=== PATIENT | male | born 1980 | race Hispanic/Latino ===

== ENCOUNTER 2018-07-03 17:51 | Observation (INO) | payer OTHER ==
[~2018-07-03] VITALS: Ht 182.9 cm; Wt 91.4 kg
[~2018-07-03 17:51] MED LIST: FISH OIL500 M1 PO; NIACIN500 M2 PO
[2018-07-03 18:43] LABS: BASOPHILS % 0.4 % (0.0-1.0); EOSINOPHILS # (AUTO) 0.1 (0.0-0.4); HEMATOCRIT 42.1 % (38.2-49.6); HEMOGLOBIN 14.1 g/dL (14.0-18.0); LYMPHOCYTES # (AUTO) 2.6 (1.0-3.2); MEAN CORPUSCULAR HGB CONC 33.5 g/dL (31-35); MEAN CORPUSCULAR VOLUME 89.6 fL (81-99); MONOCYTES # (AUTO) 0.5 (0.2-0.8); MONOCYTES % 9.7 % (4.4-11.3); NEUTROPHILS % 38.7 % (38.7-80.0); PLATELET COUNT 184 x10e3/uL (140-360); RED CELL DISTRIBUTION WIDTH 13.3 % (11.7-14.4)
[2018-07-03 18:48] LABS: CLARITY,URINE CLEAR (CLEAR); COLOR,URINE YELLOW (YELLOW); KETONES,URINE NEGATIVE (NEGATIVE); LEUKOCYTE ESTERASE ,URINE NEGATIVE (NEGATIVE); NITRITE,URINE NEGATIVE (NEGATIVE); PROTEIN,URINE DIPSTICK NEGATIVE (NEGATIVE)
[2018-07-03 18:49] LABS: BILIRUBIN,URINE NEGATIVE (NEGATIVE); URINE UROBILINOGEN 0.2 mg/dL (0.2 - 1)
[2018-07-03 18:51] LABS: AMPHETAMINES SCREEN,URINE NEGATIVE (NEGATIVE); BENZODIAZEPINES SCREEN,URINE NEGATIVE (NEGATIVE); PHENCYCLIDINE SCREEN,URINE NEGATIVE (NEGATIVE)
[2018-07-03 18:58] LABS: INR 0.93; PROTHROMBIN TIME 13.3 seconds (11.9-14.5)
[2018-07-03 18:59] LABS: PARTIAL THROMBOPLASTIN TIME 30.7 seconds (23.8-35.5)
[2018-07-03 19:01] LABS: ALANINE AMINOTRANSFERASE 38 IU/L (0-55); ALBUMIN 4.6 g/dL (3.5-5.0); ALBUMIN/GLOBULIN RATIO 1.5 (0.8-2.0); ALKALINE PHOSPHATASE 75 IU/L (40-150); ANION GAP 14.7 mmol/L (8-16); BLOOD UREA NITROGEN 16 mg/dL (7-26); BUN/CREATININE RATIO 18 (6-25); CALCIUM 9.5 mg/dL (8.4-10.2); CARBON DIOXIDE 24 mmol/L (22-29); CHLORIDE 105 mmol/L (98-107); CREATINE KINASE 150 IU/L (30-200); CREATININE, SERUM 0.88 mg/dL (0.72-1.25); EST GLOMERULAR FILTRATION RATE > 60 ML/MIN (60-); GLUCOSE 107 mg/dL (74-118); POTASSIUM 3.7 mmol/L (3.5-5.1); SODIUM 140 mmol/L (136-145)
--- NOTE | 2018-07-03 20:36 | Diagnostic Imaging Report ---
Exam: Head CT without contrast History: Dizziness Comparison studies: None Technique: Axial images were obtained from the skull base to the vertex. Coronal and sagittal images reconstructed from the axial data. Dose modulation, iterative reconstruction, and/or weight based adjustment of the mA/kV was utilized to reduce the radiation dose to as low as reasonably achievable. Radiation dose: Total DLP: 921 mGy*cm. Estimated effective dose: DLP x 0.015 Intravenous contrast: None Findings: Scalp: No abnormalities. Bones: No fractures, blastic or lytic lesions. Brain sulci: Appropriate for age. Ventricles: Normal in size and configuration. No hydrocephalus. Extra-axial spaces: No masses, no fluid collection. Parenchyma: No abnormal densities. No masses, acute hemorrhage, acute or chronic vascular insults. Sellar/suprasellar region: No abnormalities. Craniocervical junction: Patent foramen magnum. No Chiari one malformation. IMPRESSION: 1. No acute intracranial abnormalities. 2. No changes from the previous head CT of 05/03/2016. Signed by: Dr. Mamadou Hall M.D. on 07/03/2018 8:33 PM
[2018-07-03] MEDS ORDERED: ONDANSETRON HCL INJ 2 MG/ML VIAL IV PRN (21:45)
--- OUTSIDE RECORDS SUMMARY | 2018-07-03 22:08 | XMS REPORT ---
Author [facility] Address Unknown Phone Unavailable Care Team Providers Care Scholarship Counselor Name Role Phone Anayeli HANLEY Unavailable Unavailable Problems This patient has no known problems. Allergies, Adverse Reactions, Alerts This patient has no known allergies or adverse reactions. Medications This patient has no known medications. Results Test Description Test Time Test Comments Text Results Atomic Results Result Comments CT BRAIN WO 2018-07-03 20:28:00 [facility] [address] [address] Patient Name: BRI GALLAGHER MR #: [id number] : 1980 Age/Sex: 38/M Req #: [id number] Adm Physician: Ordered by: BLANCA HANLEY MD Report #: [id number] Location: ER Room/Bed: Procedure: [id number] CT/CT BRAIN WO Exam Date: Exam Time: REPORT STATUS: Signed Exam: Head CT without contrast History: Dizziness Comparison studies: None Technique: Axial images were obtained from the skull base to the vertex. Coronal and sagittal images reconstructed from the axial data. Dose modulation, iterative reconstruction, and/or weight based adjustment of the mA/kV was utilized to reduce the radiation dose to as low as reasonably achievable. Radiation dose: Total DLP: 921 mGy*cm. Estimated effective dose: DLP x 0.015 Intravenous contrast: None Findings: Scalp: No abnormalities. Bones: No fractures, blastic or lytic lesions. Brain sulci: Appropriate for age. Ventricles: Normal in size and configuration. No hydrocephalus. Extra-axial spaces: No masses, no fluid collection. Parenchyma: No abnormal densities. No masses, acute hemorrhage, acute or chronic vascular insults. Sellar/suprasellar region: No abnormalities. Craniocervical junction: Patent foramen magnum. No Chiari one malformation. IMPRESSION: 1. No acute intracranial abnormalities. 2. No changes from the previous head CT of 05/03/2016. Signed by: Dr. Keven Paulson M.D. on 07/03/2018 8:33 PM Dictated By: KEVEN PAULSON MD 32 Transcribed By: SALLIE on 07/03/182032 COPY TO: BLANCA HANLEY MD
[2018-07-03] MEDS: SODIUM CHLORIDE 0.9% 1000ML 1,000 ML IV SCH (22:42)
[2018-07-03 23:56] VITALS: BP 128/71
[2018-07-04] VITALS (7 sets, daily range): BP systolic 96–138; BP diastolic 54–81
[2018-07-04 02:47] LABS: CREATINE KINASE MB 1.3 ng/mL (0-5.0)
[2018-07-04 05:34] LABS: BASOPHILS % 0.6 % (0.0-1.0); EOSINOPHILS # (AUTO) 0.1 (0.0-0.4); EOSINOPHILS % 1.4 % (0.0-6.0); HEMATOCRIT 40.3 % (38.2-49.6); HEMOGLOBIN 13.8 g/dL (14.0-18.0); LYMPHOCYTES # (AUTO) 2.6 (1.0-3.2); LYMPHOCYTES % 51.2 % (18.0-39.1); MEAN CORPUSCULAR HEMOGLOBIN 30.5 pg (28-32); MEAN CORPUSCULAR HGB CONC 34.2 g/dL (31-35); MONOCYTES # (AUTO) 0.5 (0.2-0.8); MONOCYTES % 9.2 % (4.4-11.3); NEUTROPHILS # (AUTO) 1.9 (2.1-6.9); NEUTROPHILS % 37.4 % (38.7-80.0); PLATELET COUNT 163 x10e3/uL (140-360); RED BLOOD COUNT 4.53 x10e6/uL (4.3-5.7); RED CELL DISTRIBUTION WIDTH 13.5 % (11.7-14.4)
[2018-07-04 05:57] LABS: ANION GAP 12.7 mmol/L (8-16); BLOOD UREA NITROGEN 13 mg/dL (7-26); BUN/CREATININE RATIO 16 (6-25); CALCIUM 8.8 mg/dL (8.4-10.2); CARBON DIOXIDE 22 mmol/L (22-29); CHLORIDE 110 mmol/L (98-107); CHOL/HDL RATIO 5.2 (3.9-4.7); CHOLESTEROL 183 MD/DL (0-199); CREATININE, SERUM 0.83 mg/dL (0.72-1.25); EST GLOMERULAR FILTRATION RATE > 60 ML/MIN (60-); GLUCOSE 99 mg/dL (74-118); HDL CHOLESTEROL 35 MG/DL (40-60); LDL CHOLESTEROL 126 MG/DL (60-130); POTASSIUM 3.7 mmol/L (3.5-5.1); SODIUM 141 mmol/L (136-145); TRIGLYCERIDES 109 MG/DL (0-149)
[2018-07-04] MEDS: SODIUM CHLORIDE 0.9% 1000ML 1,000 ML IV SCH (07:03)
[2018-07-04] MEDS ORDERED: ASPIRIN 81 MG ENTERIC COATED PO SCH ×2 (09:00→10:30)
[2018-07-04] MEDS ORDERED: AMOXICILLIN 250 MG CAP PO SCH ×2 (11:45→15:00)
[2018-07-04] MEDS ORDERED: LORATADINE/PSEUDOEPHEDRINE 24 HR SR TAB PO SCH (12:30)
--- NOTE | 2018-07-04 13:06 | History and Physical ---
CHIEF COMPLAINT: "I could not speak." HISTORY OF PRESENT ILLNESS: This is a 38-year-old man who presented to [facility] with 2 episodes of altered mentation. Patient states the first episode occurred at work, and for approximately 45 to 60 seconds, he could not speak. The patient stated that he could think of the words but could not actually articulate them. Patient's second episode occurred an hour later when he was driving the car with his . Patient stated that at that time he had intense head pressure that made it difficult for him to speak. Both episodes lasted approximately 45 to 60 seconds. Patient also states that for the past few months he has had vertigo like symptoms. In fact, he has ran into the wall twice because of possible ataxia. These complaints are corroborated by his . In the emergency room, patient had a CT of the brain without contrast, which did not reveal any acute intracranial abnormality. Patient also had blood work done that was unremarkable. Moreover, urine toxicology was completely negative. Patient was admitted for further evaluation and treatment. REVIEW OF SYSTEMS GENERAL: Weight has been stable. No fever or chills. HEENT: Patient states that on day of admission, he had intense head pressure. He also complains of intermittent vertigo symptoms over the last couple of months. Denies any visual changes. CARDIOVASCULAR: No chest pain or shortness of breath. No palpitations or lightheadedness. GI: No nausea, vomiting, constipation. : No UTI symptoms. NEUROMUSCULAR: The patient states for the past 6 months, he has had a few episodes of poor balance, possible ataxia. PAST MEDICAL HISTORY: None. SURGICAL HISTORY: None. FAMILY HISTORY: Two uncles with strokes. ALLERGIES: NO KNOWN DRUG ALLERGIES. MEDICATIONS: None. SOCIAL HISTORY: He is . Lives with his . 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 Quit smoking tobacco and drinking alcohol several years ago. PHYSICAL EXAMINATION GENERAL: He is awake, alert, and fully oriented. He is slightly anxious but he is very pleasant, cooperative on exam. Excessive repetitive eye blinking observed in this patient. VITAL SIGNS: Blood pressure is 122/68, pulse 55, respiratory rate 18, temperature 95.8, ox saturation 98% on room air, height is 6 feet 0 inches, weight is 200 pounds, BMI 27. INTEGUMENT: Skin is warm and dry. No pallor, jaundice, or diaphoresis. HEENT: Anicteric sclerae. Moist mucous membranes. Patient has poor light reflex in the bilateral tympanic membranes consistent with middle ear effusion. The right tympanic membrane is erythematous. No frontal or maxillary sinus tenderness appreciated with palpation. NECK: Supple. No evidence of lymphadenopathy. CARDIOVASCULAR: Regular rate and rhythm. LUNGS: No rales. No rhonchi or wheezing. EXTREMITIES: No edema or deformity. NEUROLOGIC: No focal deficits appreciated. Negative Romberg. No evidence of dysdiadochokinesia. Brttmx-fp-[id number] was intact. DIAGNOSES 1. Expressive aphasia (transient). 2. Bilateral middle ear effusions. 3. Right otitis media. 4. Vertigo, likely secondary to bilateral middle ear effusions. 5. Tourette's, likely. PLAN 1. Consult neurology. 2. We will initiate antihistamines with pseudoephedrine for patient's middle ear effusion and vertigo symptoms. 3. Prescribe amoxicillin 875 mg p.o. b.i.d. for 7 days for patient's right-sided otitis media. 4. We will proceed with MRI of the brain. 5. Discontinue intravenous fluids. 6. Discontinue telemetry. 7. Reassurance. 8. I informed the patient that if MRI of the brain is unremarkable, then he will be discharged home. I spent an hour in the care of this patient. Job#: [id number] ALIS YEAGER
--- NOTE | 2018-07-04 14:45 | Diagnostic Imaging Report ---
History: Slurred speech for 5 minutes yesterday Comparison studies: CT head 07/03/2018 and 08/24/2015 Technique: Sagittal T2; axial DWI, FLAIR, MPGR, T1, Coronal FLAIR. Intravenous contrast: None Findings: Scalp: Normal in signal . No masses . Bone marrow: Normal in signal intensity. Extra-axial: No masses, no fluid collections. Brain sulci: Appropriate for age. Ventricles: Normal in size . No hydrocephalus . Parenchyma: No abnormal signal intensities. No masses, hemorrhage, acute or chronic vascular insults. Suprasellar region: No abnormalities. Craniocervical junction: No abnormalities. Patent foramen magnum. No Chiari one malformation. Vessels: Normal flow-voids in the arteries and sinuses. IMPRESSION: 1. No abnormalities Signed by: DR Manny Taylor M.D. on 07/04/2018 2:41 PM
[2018-07-04 15:17] LABS: CREATINE KINASE 113 IU/L (30-200)
[2018-07-04] MEDS ORDERED: AMOXICILLIN875 MG PO (17:29)
[2018-07-04] MEDS ORDERED: ALLEGRA-D 12 H1 EACH PO (17:30)
--- NOTE | 2018-07-04 19:13 | Consultation ---
DATE OF CONSULTATION: July 04, 2018 NEUROLOGY CONSULT NOTE HISTORY OF PRESENT ILLNESS: Mr. Russo is a 38-year-old right hand dominant man with past medical history significant for hyperlipidemia, admitted to [facility] on July 03, 2018 with multiple symptoms. Beginning in December 2017, the patient began to experience intermittent dizziness, which he describes as a vertiginous sensation. The vertiginous sensation causes the patient to have an intermittently unsteady gait, which has resulted in multiple stumbles and falls. Mr. Russo reports breaking toes in both feet as a result of these stumbles and falls. The patient saw his primary care physician regarding the above symptoms and was diagnosed with vertigo. He was prescribed an oral medication for treatment, but did not take this medication. Approximately 1 week ago, the patient began to experience pressure in his head which is described as follows: The pressure is located over the occiput and does not radiate. The patient does not report throbbing, pulsing, or sharp pain associated with the pressure. The pressure is [id number] in severity. Mr. Russo does report dizziness, further described as a vertiginous sensation, and impairment of concentration associated with the headache. He does not report visual disturbance, photophobia, phonophobia, or nausea and vomiting associated with the headache. Thinking the above symptoms were due to the previously untreated vertigo, Mr. Russo began taking the prescribed oral medication. On the day admission, the patient experienced 2 transient episodes of expressive aphasia. Mr. Russo reports speaking to different coworkers during both situations. For a period of approximately 30 to 45 seconds, the patient knew what he wanted to say, but was unable to get the words out. Along with the expressive aphasia, the patient reports a need to be "super focused" on whenever he was trying to do at the moment (i.e., drive his truck, answer questions from coworkers, etc.) The speech difficulty was especially disturbing to Mr. Russo, so he proceeded to [facility] where he was admitted for further evaluation and treatment. Mr. Russo does not report a personal history nor a family history of primary headache disorders. He does not endorse febrile seizures. He does have a nephew with a seizure disorder. The patient reports multiple instances of head trauma with one instance of loss of consciousness. He does not report prior meningitis or encephalitis. REVIEW OF SYSTEMS: Impairment of concentration, aphasia, headache which is described as pressure over the occiput, and dizziness which is described as a vertiginous sensation. Otherwise, a 12-point review of systems is negative. PAST MEDICAL HISTORY: Hyperlipidemia. PAST SURGICAL HISTORY: None. PAST HOSPITALIZATIONS: None. FAMILY MEDICAL HISTORY: The patient's paternal and maternal grandparents are . Their medical records are unknown. The patient's father is from an aortic dissection. He had coronary artery disease as well. The patient's mother is alive. She has hyperlipidemia, diabetes mellitus, and schizophrenia. Mr. Russo has 4 siblings, 1 brother and 3 sisters, all of whom are alive. His younger sister has bipolar disorder. His middle sister is healthy. His elder sister and brother have possible psychiatric disorders. The patient has 3 daughters, all of whom are alive and healthy. SOCIAL HISTORY: The patient is . 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 The patient does report a prior history of tobacco use, but quit smoking cigarettes 15 years ago. The patient does report a prior history of alcohol use, but quit drinking alcohol approximately 3 years ago. Mr. Russo reports using marijuana and acid in his youth. Last use was 20 years ago. HOME MEDICATIONS: None. ALLERGIES: STATINS CAUSE BLURRED VISION. NO KNOWN FOOD ALLERGIES. NO KNOWN ALLERGIES TO LATEX. NO KNOWN ALLERGIES TO IODINE OR OTHER CONTRAST MATERIALS. PHYSICAL EXAMINATION VITAL SIGNS: Height 72 inches, weight 201 pounds, BMI 27.3 kg/m2. Blood pressure 102/59 mmHg, pulse 52 beats per minute, respiratory rate 18 breaths per minute, oxygen saturation 97% on room air. GENERAL: The patient is awake and alert, does not appear distressed. Mildly overweight. HEENT: Normocephalic, atraumatic. Pupils are equal, round, and reactive to light. Moist mucous membranes. NECK: Supple. No appreciable thyromegaly. No appreciable carotid bruits. CARDIOVASCULAR: S1, S2, regular rate and rhythm. No murmurs, rubs, or gallops. RESPIRATORY: Clear to auscultation bilaterally. No wheezes, rhonchi, or rales. EXTREMITIES: The skin is warm and dry. No clubbing, cyanosis, or edema. The posterior tibial and dorsalis pedis pulses are 2+ and symmetric. SKIN: No rashes or lesions. NEUROLOGIC: Memory/Attention: The patient is awake and alert, oriented to person, place, time, and situation. Cranial Nerves: Cranial nerve I - not tested. Cranial nerve II, III, IV, and - pupils are equal and round, react briskly to light (from 4 mm to 2 mm). Extraocular movements intact. No nystagmus. Cranial nerve V - sensation to light touch and pinprick is intact in the bilateral V1 through V3 distributions. Strength of the temporalis and masseter muscles is within normal limits. Cranial nerve VII - the face is symmetric as are all facial movements. Strength is within normal limits. Cranial nerve VII - hearing is intact to finger rub bilaterally. Cranial nerve IX, X - the soft palate elevates equally and symmetrically. Cranial nerve XI - normal strength of the bilateral sternocleidomastoid and trapezius muscles. Cranial nerve XII - the tongue protrudes midline and moves symmetrically from side to side. Strength: Bulk is normal. Strength is 5/5 in the bilateral deltoids, biceps, triceps, wrist flexors and extensors, finger flexors and extensors, intrinsic hand muscles, hip flexors, knee flexors and extensors, ankle dorsiflexion and plantarflexion, and intrinsic foot muscles. Tone is normal. DTRs: Deep tendon reflexes are 2+ and symmetric at the triceps, biceps, brachioradialis, patellas, and Achilles. Plantar responses are flexor bilaterally. Sensation: Sensation is intact to light touch and pinprick in both arms and both legs. Cerebellar: Wivqcz-pnbf-scmjla and heel-finley movements are intact without dysmetria or other impairment. Gait: Spontaneous gait is normal. Speech: Spontaneous speech is normal without appreciable dysarthria or aphasia. Repetition is intact. Involuntary Movements: None. Pronator Drift: None. LABORATORY DATA: A comprehensive metabolic panel is unremarkable. Cardiac enzymes are negative x3. Total cholesterol 183, triglycerides 109, LDL cholesterol 126, HDL cholesterol 35. The CBC with differential and platelets reveals a white blood cell count of 5.12 with 37.4% neutrophils, 51.2% lymphocytes, 9.2% monocytes, 1.4% eosinophils, and 0.6% basophils. The hemoglobin and hematocrit are 13.4 and 40.3, respectively. The platelet count is 163. The coagulation profile is within normal limits. A urinalysis is unremarkable. A urine drug screen is negative. DIAGNOSTIC STUDIES: CT of the brain without contrast, July 03, 2018: On my review, there is no evidence of recent large territorial ischemia, hemorrhage, mass, or mass effect. Cerebral volumes are appropriate for age. There are no findings compatible with chronic small vessel ischemic disease. ASSESSMENT AND PLAN: Mr. Russo is a 38-year-old right hand dominant man with past medical history significant for hyperlipidemia, admitted with multiple symptoms, chief among them being 2 brief episodes of expressive aphasia. The patient's neurological examination is nonfocal. His laboratory data and other diagnostic studies have been reviewed and are documented above. There is low suspicion for a transient ischemic attack or stroke based on the patient's relative lack of vascular risk factors as well as the brief duration of both episodes of expressive aphasia. The presence of headache, vertigo, and impairment of concentration raises suspicions for migraine phenomenon, which may have neurological symptoms associated with it. Another possible diagnosis is an underlying seizure disorder, particularly frontal lobe seizures. RECOMMENDATIONS: Are as follows; 1. A MRI of the brain without contrast has been ordered and is pending. 2. A routine EEG will be ordered stat so it may be done over the weekend. 3. Defer treatment of the remaining medical comorbidities to the primary and other services following the patient. Thank you for this consultation. I will continue to follow the patient while he remains in the hospital. TIME SPENT: 70 minutes. Job#: [id number] ARTHUR
--- NOTE | 2018-07-04 20:04 | Electroencephalogram ---
DATE OF STUDY: July 04, 2018 REQUESTING PHYSICIAN: Dr. Leora Perez. PATIENT HISTORY: This 38-year-old man with a history of transient expressive aphasia, is having an EEG for evaluation of epileptiform activity. The patient is not taking any medications that might affect the EEG. TECHNIQUE: This is a routine, portable EEG, recorded digitally, using the International 10/20 Electrode Placement System and done in the inpatient setting with the patient awake. The EEG is adequate for interpretation. DESCRIPTION: Well-organized, well-sustained, 10-12 Hz activity is best seen symmetrically over the posterior head regions. No focal or epileptiform activity is recorded. Sleep is not recorded. Photic stimulation does not produce a driving response. Hyperventilation does not produce slowing. INTERPRETATION: This electroencephalogram is normal with the patient awake. No epileptiform discharges are seen. Job#: [id number] VAS MTDD
--- NOTE | 2018-09-06 13:13 | Discharge Summary ---
ADMITTING DIAGNOSES 1. Expressive aphasia (transient). 2. Bilateral middle ear effusions. 3. Right otitis media. 4. Vertigo, likely secondary to middle ear effusions. 5. Tourette's, likely. DISCHARGE DIAGNOSES 1. Expressive aphasia (transient), resolved. 2. Bilateral middle ear effusions. 3. Right otitis media. 4. Vertigo, secondary to bilateral middle ear effusions. 5. Tourette's, likely. HOSPITAL COURSE: This is a 38-year-old man who initially was admitted to [facility] with diagnosis of transient aphasia as well as dizziness. During this hospitalization, he was diagnosed with bilateral middle ear effusion, right otitis media and likely vertigo. Patient improved clinically with medications during this hospital stay. Patient was also seen by a neurologist during this hospital stay, name, Dr. Leora Perez. The patient underwent electroencephalogram during this hospital stay that was completely normal. No epileptiform discharges were appreciated. Patient also underwent an MRI of the brain during this hospitalization, which showed actually no abnormalities. Moreover, patient underwent carotid Doppler that did not reveal any hemodynamically significant stenosis in the carotid system. The patient's hospitalization was unremarkable. CONDITION ON DISCHARGE: Stable. DISCHARGE MEDICATIONS 1. Amoxicillin 875 mg p.o. b.i.d. for 7 days. 2. Fexofenadine with pseudoephedrine 1 tablet by mouth twice a day for 14 days. FOLLOWUP INSTRUCTIONS: Patient is instructed to follow up with his primary care doctor within 1 to 2 weeks. CAROL MAI MD Job#: [id number] LEDY cc: LEORA PEREZ MD MTDD
== END 2018-07-04 17:48 | disposition home or self-care (01) ==
LOC: ER 17:51 → ERHOLD 21:45 → MED/SURG3 22:37
PROVIDERS: ADMIT Internal Medicine; ATTEND Internal Medicine
DX: R47.01 Aphasia (principal); E78.5 Hyperlipidemia, unspecified; H65.91 Unspecified nonsuppurative otitis media, right ear; Z87.891 Personal history of nicotine dependence; R51 Headache
CPT/HCPCS: 36415 ×2; 70450; 70551; 80048; 80053; 80061; 80307; 81001; 82550 ×2; 82553 ×2; 84484 ×2; 85025 ×2; 85610; 85730; 93005; 93880; 95816; 99284; G0378 ×2; J2405; J7030 ×2

== ENCOUNTER → 2022-10-17 | Day surgery (SDC) | payer OTHER ==
[~2022-10-17] MED LIST changes: +ACETAMINOPHEN 1000 MG/100 ML 100 ML IV ONE; +ALLEGRA-D 12 H1 EACH PO; +AMOXICILLIN875 MG PO; +BUPIVACAINE HCL 0.5% INJ 30 ML VIAL INJ ONE; +CEFAZOLIN SODIUM 2 GM ONE; +DEXAMETHASONE SOD PHOS INJ 4 MG/ML SDV ONE; +FENTANYL CITRATE/PF 100MCG/2 ML INJ ONE; +KETOROLAC TROMETHAMINE 30 MG/ML VIAL ONE; +LIDOCAINE HCL 2% LOCAL INJ 5 ML SDV VIAL INJ ONE; +ONDANSETRON HCL INJ 2MG/ML 2ML 2 MG/ML VIAL ONE; +POVIDONE IODINE 0.05% 0.05 % ML PO ONE; +PROPOFOL IV EMULSION 10 MG/ML 20 ML VIAL ONE; +SEVOFLURANE INHAL SOLN 250 ML PEN BTL ONE
[2022-10-17 15:10] VITALS: BP 132/74
== END | disposition home or self-care (01) ==
LOC: OR 11:57
PROVIDERS: ATTEND Podiatrist Foot & Ankle Surgery
DX: M20.42 Other hammer toe(s) (acquired), left foot (principal)
CPT/HCPCS: 28285; 93005; J0131; J1100; J1885; J2001; J2405; J2704; J3010